=== PATIENT | female | born 1950 | race Caucasian/White ===

== ENCOUNTER 2024-07-06 09:14 | Emergency (ER) | payer MEDICARE, OTHER ==
[~2024-07-06] VITALS: Ht 147.3 cm; Wt 57.7 kg
--- NOTE | 2024-07-06 10:06 | Physician Documentation ---
History of Present Illness ~ Chief Complaint: Cold, cough & congestion Stated Complaint: COUGH/SORE THROAT X7 DAYS Time Seen by MD: 09:40 HPI This is a 74-year-old female who presents with one-week of cough, chest congestion, sore throat, runny nose, nasal congestion, and diarrhea without chest pain, shortness of breath, or fever. Patient reports cough was initially nonproductive however has become productive and she can feel rattling in her chest. Patient reports no other acute symptoms or concerns. Medication Reconciliation Allergies: Coded Allergies: Penicillins (Verified Allergy, Unknown, 07/06/24) Sulfa (Sulfonamide Antibiotics) (Verified Allergy, Unknown, 07/06/24) procaine (Verified Allergy, Unknown, 07/06/24) Past Medical History Past Medical History: No Pertinent History Review of Systems ROS Cough, chest congestion, sore throat, nasal congestion, runny nose, and diarrhea as stated above in the HPI, otherwise all systems are reviewed and negative. Physical Exam Vital Signs: Temperature: 98.0, Source: Temporal, Heart Rate: 74, Respiratory Rate: 18, BP: 134/87, Pulse Oximetry: 99, Weight: 57.660 Physical Exam VITALS: Reviewed and as above. GENERAL: Alert and oriented, nontoxic appearing, no apparent distress. HEENT: Tonsils non swollen, no oropharyngeal erythema, uvula midline RESPIRATORY: Lungs clear, normal breath sounds, no respiratory distress, no increased work of breathing CV: Regular rate, rhythm, no murmur Progress Results/Orders Results/Orders Vital Signs 07/06/24 07/06/24 07/06/24 07/06/24 09:23 10:45 10:52 10:53 Temp 98.0 98.0 98.0 Pulse 74 68 68 Resp 18 17 16 16 B/P (MAP) 134/87 136/85 (102) 136/85 Pulse Ox 99 100 100 O2 Flow Rate 0 EKG/XRAY/CT/US/VASC/MRI Chest X-Ray : Additional Comments EXAM: DI CHEST,SINGLE VIEW Indication: CP Technique: Single frontal view of the chest was obtained Comparison: None FINDINGS: Lines and Tubes: None Lungs: No focal consolidation. Pleura: No effusion. No pneumothorax. Cardiomediastinal contours: Unremarkable Bones: No acute osseous abnormality. IMPRESSION: No acute cardiopulmonary disease. Electronically Signed by:MINOO PECK MD Date & Time: 07/06/24 1010 Dictated by: MINOO PECK MD Dictation date and time: 07/06/24 0948 I have reviewed and agree with the radiology report. I have reviewed and interpreted the imaging as: No focal consolidation or pneumothorax Medical Decision Making Findings This 74-year-old female presented with one-week of cough, chest congestion, sore throat, runny nose, nasal congestion, and diarrhea without chest pain, shortness of breath, or fever. On further questioning it does appear the pain diarrhea has resolved this patient reports no diarrhea in the past two days which is reassuring. Physical exam was benign with and no evidence of respiratory distress, vital signs stable without evidence of hypoxia and chest x-ray did not demonstrate evidence of pneumonia or other intrathoracic process. History and exam is consistent with upper respiratory tract infection likely a viral etiology, patient was appropriate for outpatient management and follow up. Careful home care instructions and return to care precautions were provided to patient including the use of [id number] medications for symptom relief which patient verbalized understanding of. Differential Dx:Considerations: Include: Allergic rhinitis, Influenza, Otitis media, Peritonsillar abscess, Pharyngitis-Streptoccal, Pneumonia, Pnuemonitis, Sinusitis Departure Time of Disposition: 10:25 Disposition: 01 HOME / SELF CARE / HOMELESS Impression: Primary Impression: Acute respiratory infection Condition: Improved Discharge Instructions: Upper Respiratory Infection, Adult Additional Instructions: Your exam was reassuring I believe your symptoms are from a viral upper respiratory tract infection, it was additionally reassuring your diarrhea appears to be resolving. Maintain good hydration, warm non caffeinated, non alcoholic beverages and honey may help with your cough and sore throat. You may use ibuprofen and or Tylenol as directed by the [id number] packaging as needed for pain. Plain guaifenesin (generic for Mucinex) without other additives may help clear your chest congestion however you must drink plenty of fluids with this medication to make it work appropriately. Avoid cough suppressants as they can increase your risk of developing pneumonia though these may be used carefully for cough that disturbs her sleep. Please follow up with your primary care provider in the next few days for re-evaluation. Please return to the emergency department for any new or worsening concerning symptoms including but not limited to chest pain, shortness of breath, fever, if you began coughing up blood or if the diarrhea returns. Referrals: NO PRIMARY CARE PROVIDER (PCP) Education Educated: Patient Educated regarding: diagnosis, treatment, prognosis, need for follow up Signature Scribe Signature: No Scribe Attestation: The note accurately reflects work and decisions made by me.WALDEMAR Castillo 07/06/24 20:22 KEEGAN MANNING Jul 06, 2024 10:06
--- NOTE | 2024-07-06 10:13 | RADIOLOGY REPORT ---
EXAM: DI CHEST,SINGLE VIEW Indication: CP Technique: Single frontal view of the chest was obtained Comparison: None FINDINGS: Lines and Tubes: None Lungs: No focal consolidation. Pleura: No effusion. No pneumothorax. Cardiomediastinal contours: Unremarkable Bones: No acute osseous abnormality. IMPRESSION: No acute cardiopulmonary disease.
[2024-07-06 10:53] VITALS: BP 136/85; PULSE 68; RESP 16; TEMP 98; O2SAT 100
== END 2024-07-06 10:51 | disposition home or self-care (01) ==
LOC: ER 09:15
DX: J22 Unspecified acute lower respiratory infection (principal); Z88.0 Allergy status to penicillin; Z88.2 Allergy status to sulfonamides
CPT/HCPCS: 71045; 99283

== ENCOUNTER 2024-07-15 11:55 | Emergency (ER) | payer MEDICARE, OTHER ==
[~2024-07-15] VITALS: Ht 147.3 cm; Wt 57.0 kg
[2024-07-15 12:00] VITALS: BP 122/78; PULSE 70; RESP 16; TEMP 98.3; O2SAT 98
--- NOTE | 2024-07-15 12:44 | RADIOLOGY REPORT ---
CHEST RADIOGRAPH Indication: r/o PNA Technique: Single frontal view of the chest was obtained COMPARISON: DI CHEST,SINGLE VIEW on DOS: 07/06/24 FINDINGS: Lines and Tubes: None Lungs: Clear Pleura: No effusion. No pneumothorax. Cardiomediastinal contours: Unremarkable Bones: Unremarkable IMPRESSION: No acute disease.
[2024-07-15] MEDS ORDERED: CLAR-45 PO (13:19)
--- NOTE | 2024-07-15 13:19 | Physician Documentation ---
History of Present Illness ~ Chief Complaint: Cold, cough & congestion Stated Complaint: SINUS INFECTION Time Seen by MD: 12:56 OK to notify your PCP?: Yes Source: patient Mode of Arrival: POV Exam Limitations: no limitations HPI 74 y/o female with c/o sinus pain x 14days. Pre-arrival treatment with mucinex and sudafed. Associated post nasal drip and cough. No sob, fever, chills, abdominal pain, nausea, edema. Medication Reconciliation Allergies: Coded Allergies: Penicillins (Verified Allergy, Unknown, 07/06/24) Sulfa (Sulfonamide Antibiotics) (Verified Allergy, Unknown, 07/06/24) procaine (Verified Allergy, Unknown, 07/06/24) Scheduled Clarithromycin (Clarithromycin), 1 TAB PO Q12H Past Medical History Past Medical History: No Pertinent History Review of Systems All Other Systems at this time: Reviewed and Negative Physical Exam Vital Signs: Temperature: 98.3, Source: Oral, Heart Rate: 70, Respiratory Rate: 16, BP: 122/78, Pulse Oximetry: 98, Weight: 57.000 Oxygen Flow Rate: 0 Physical Exam GENERAL: Alert, no acute distress. HEENT: NCAT, EOMI, PERRL, ttp over maxillary sinuses, normal oropharynx, moist oral mucosa. NECK: Supple, trachea midline. CARDIAC: Regular rate and rhythm, no murmurs, rubs, or gallops. Equal distal pulses. No lower extremity edema, cap refill less than 2 seconds. RESPIRATORY: Equal breath sounds, clear to auscultation bilaterally, no respiratory distress. MUSCULOSKELETAL: Normal range of motion, nontender, no swelling. Normal gait. NEUROLOGICAL: Awake, alert, and oriented x 3. SKIN: Warm/dry, no pallor, no rash. PSYCH: Alert and appropriate. Affect congruent with mood. Speech is clear. Good eye contact. Progress Results/Orders Reviewed/noted all lab results: Yes Results/Orders Vital Signs 07/15/24 12:00 Temp 98.3 Pulse 70 Resp 16 B/P (MAP) 122/78 Pulse Ox 98 O2 Flow Rate 0 Medical Decision Making Differential Dx:Considerations: Include: Allergic rhinitis, Influenza, Otitis media, Peritonsillar abscess, Pharyngitis-Diphtheria, Pharyngitis-Streptoccal, Pharyngitis-Viral, Pneumonia, Pnuemonitis, Sinusitis, URI, Other Departure Time of Disposition: 18:52 Disposition: 01 HOME / SELF CARE / HOMELESS Impression: Primary Impression: Sinusitis Qualified Codes: J32.9 - Chronic sinusitis, unspecified Condition: Stable Discharge Instructions: Sinus Infection, Adult Additional Instructions: SINCE SYMPTOMS PRESENT FOR 2WEEKS AT THIS POINT REASONABLE TO TREAT WITH ANTIBIOTICS ABX SENT TO PHARMACY YOU CAN CONTINUE MUCINEX AND SUDAFED WELL YOUR NASAL IRRIGATION Referrals: NO PRIMARY CARE PROVIDER (PCP) Prescriptions Clarithromycin (Clarithromycin) 500 Mg Tablet 1 TAB PO Q12H for 10 Days, #20 TAB Prov: EDNA NAVARRETE 07/15/24 Education Educated: Patient Educated regarding: diagnosis, treatment, need for follow up Signature Scribe Signature: x Attestation: EDNA Cardenas July 15, 2024 13:19
== END 2024-07-15 13:40 | disposition home or self-care (01) ==
LOC: ER 11:56
DX: J32.9 Chronic sinusitis, unspecified (principal); Z88.0 Allergy status to penicillin; Z88.2 Allergy status to sulfonamides
CPT/HCPCS: 71045; 99283